=== PATIENT | female | born 2000 | race Caucasian/White ===

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

== ENCOUNTER 2018-01-14 21:21 | Emergency (ER) | payer MEDICARE ==
[~2018-01-14] VITALS: Ht 157.5 cm; Wt 113.4 kg
[2018-01-14 21:26] VITALS: BP 133/66
--- NOTE | 2018-01-14 21:30 | NUR ---
17 Y/O F BIB SELF W/C/O FEVER, RUNNY NOSE, AND SORE THROAT X1DAY. PT STATES N/V DENIES DIARRHEA ; SKIN IS INTACT, PINK/WARM/DRY; AAOX4, PERRL, WITH EVEN AND STEADY GAIT; LUNGS CLEAR BL, BREATHING UNLABORED; HR EVEN AND REGULAR, BL PERIPHERAL PULSES PRESENT; BS ACTIVE X4, NO TENDERNESS TO PALPATION, NO HEPATOSPLENOMEGALLY PALPATED, RESONANT TO PERCUSSION; PT STATES FEVER, DENIES CP, SOB, OR COUGH AT THIS TIME; PT STATES 10/10 PAIN AT THIS TIME IN HEAD THAT FEELS SEVERE; VSS; PATIENT POSITIONED FOR COMFORT; HOB ELEVATED; BEDRAILS UP X2; BED DOWN.
--- NOTE | 2018-01-14 21:37 | NUR ---
PT TAKEN TO BED 4
--- NOTE | 2018-01-14 21:48 | NUR ---
Dr. Poon evaluating patient at bedside.
[2018-01-14] MEDS ORDERED: DEXAMETHASONE 10 MG/ML VIAL PO ONE (21:55)
[2018-01-14] MEDS ORDERED: KETOROLAC 30 MG/ML VIAL IM ONE (21:55)
[2018-01-14 22:46] VITALS: BP 133/66
--- NOTE | 2018-01-14 22:47 | NUR ---
Patient discharged with v/s stable. Written and verbal after care instructions given and explained. Patient alert, oriented and verbalized understanding of instructions. Ambulatory with steady gait. All questions addressed prior to discharge. ID band removed. Patient advised to follow up with PMD. Rx of naprosyn 500mg, tylenol #3 with codeine,Amoxicillin 500mg given. Patient educated on indication of medication including possible reaction and side effects. Opportunity to ask questions provided and answered.
== END 2018-01-14 22:47 | disposition home or self-care (01) ==
LOC: MED 21:21
DX: J02.9 Acute pharyngitis, unspecified (principal); H57.8 Other specified disorders of eye and adnexa; Z91.030 Bee allergy status
CPT/HCPCS: 81002; 81025; 87081; 96372; 99284; J1100; J1885